=== PATIENT | female | born 1955 | race Caucasian/White ===

== ENCOUNTER 2019-01-01 09:22 | Day surgery (SDC) | payer OTHER ==
[~2019-01-01] VITALS: Ht 165.1 cm; Wt 78.2 kg
[2019-01-01] VITALS (9 sets, daily range): BP systolic 104–131; BP diastolic 52–74
[~2019-01-01 09:22] MED LIST: normal saline 1000ml 1,000 ML IV SCH
[2019-01-01] MEDS ORDERED: INSU100V12 SQ (09:24)
[2019-01-01] MEDS ORDERED: METO1TAB40 PO (09:25)
[2019-01-01] MEDS ORDERED: MULT-85 PO (09:25)
[2019-01-01] MEDS ORDERED: ATOR20TA66 PO (09:25)
[2019-01-01] MEDS ORDERED: GLIM4TAB4 PO (09:25)
[2019-01-01] MEDS ORDERED: LOSA100T57 PO (09:25)
[2019-01-01] MEDS ORDERED: METF-950 PO (09:25)
[2019-01-01] MEDS ORDERED: UBID50TA3 PO (09:25)
[2019-01-01] MEDS ORDERED: CHOL200077 PO (09:25)
[2019-01-01] MEDS ORDERED: EMPA10TA PO (09:25)
[2019-01-01] MEDS ORDERED: TETR15DR26 OP (09:25)
[2019-01-01 10:10] LABS: BASOPHILS # (AUTO) 0.1 X10'3 (0-0.2); BASOPHILS % (AUTO) 0.8 % (0-1); EOSINOPHILS # (AUTO) 0.1 X10'3 (0-0.9); EOSINOPHILS % (AUTO) 1.9 % (0-6); HEMATOCRIT 45.8 % (35.0-45.0); HEMOGLOBIN 15.1 g/dl (12.0-16.0); LYMPHOCYTES # (AUTO) 1.4 X10'3 (1.1-4.8); MEAN CORPUSCULAR HEMOGLOBIN 28.5 PG (27.0-31.0); MEAN CORPUSCULAR VOLUME 86.3 FL (78-98); MEAN PLATELET VOLUME 8.8 FL (7.4-10.4); MONOCYTES # (AUTO) 0.6 X10'3 (0-0.9); MONOCYTES % (AUTO) 7.8 % (2-12); NEUTROPHILS # (AUTO) 5.3 X10'3 (1.8-7.7); NEUTROPHILS % (AUTO) 70.5 % (42-75); PLATELET COUNT 167 X10'3 (140-440); RED CELL DISTRIBUTION WIDTH 17.9 % (11.5-14.5); WHITE BLOOD COUNT 7.5 X10'3 (4.5-11.0)
[2019-01-01] MEDS ORDERED: ceFAZolin 1GM/D5W- ADD-VANTAGE 100 ML IV ONE (10:15)
[2019-01-01] MEDS ORDERED: vancomycin 1,000mg inj ONE (10:16)
[2019-01-01] MEDS ORDERED: midazolam 2 mg/2 ml injection ONE ×6 (10:16→15:18)
[2019-01-01] MEDS ORDERED: LIDOcaine 1% W/epiNEPHrine 1:100,000 20ml vial ONE (10:16)
[2019-01-01] MEDS ORDERED: fentaNYL/PF 50MCG/1 ML 2ML syringe ONE ×4 (10:17→13:30)
[2019-01-01 10:19] LABS: ALBUMIN 4.2 G/DL (3.4-5.0); ANION GAP 10 (8-16); BLOOD UREA NITROGEN 26 MG/DL (7-18); BUN/CREATININE RATIO 21.7 (6.6-38.0); CALCIUM 9.6 MG/DL (8.5-10.1); CHLORIDE 101 MMOL/L (99-107); GLUCOSE 206 MG/DL (70-104); POTASSIUM 4.2 MMOL/L (3.5-5.1); SODIUM 136 MMOL/L (135-145); TOTAL CARBON DIOXIDE 24.8 MMOL/L (24-32); eGFR 46 ML/MIN
[2019-01-01] MEDS ORDERED: iohexol 350 MG/ML 50ML vial IV ONE (12:28)
[2019-01-01] MEDS ORDERED: proCHLORperazine 10 MG/2 ml inj ONE (12:55)
[2019-01-01] MEDS ORDERED: LIDOcaine 2% 10ml TOPICAL JELLY (Urojet) ONE (13:04)
[2019-01-01] MEDS ORDERED: iohexol 350MG/ML 100ml bottle IV ONE ×2 (13:13→13:34)
[2019-01-01] MEDS ORDERED: diphenhydrAMINE 50 mg/ml inj ONE (13:30)
== END 2019-01-01 19:30 | disposition home or self-care (01) ==
LOC: SSTAY O 09:22
PROVIDERS: ATTEND Internal Medicine Cardiovascular Disease
DX: I44.2 Atrioventricular block, complete (principal); I42.8 Other cardiomyopathies; I11.0 Hypertensive heart disease with heart failure; I50.9 Heart failure, unspecified; E78.5 Hyperlipidemia, unspecified; E11.9 Type 2 diabetes mellitus without complications; I49.9 Cardiac arrhythmia, unspecified; Z95.0 Presence of cardiac pacemaker; Z79.899 Other long term (current) drug therapy; Z79.84 Long term (current) use of oral hypoglycemic drugs; Z88.8 Allergy status to other drugs, medicaments and biological substances
CPT/HCPCS: 33225; 33233; 33249; 36415; 71045; 80048; 83735; 85025; 85610; 93005; 99152; 99153; C1769; C1777; C1882; C1887; C1900; J0690; J0780; J1200; J2250; J3010; J3370; J7030; Q9967

== ENCOUNTER 2019-01-03 19:53 | Emergency (ER) | payer OTHER ==
[~2019-01-03] VITALS: Ht 162.6 cm; Wt 78.1 kg
[~2019-01-03 19:53] MED LIST changes: +ATOR20TA66 PO; +CHOL200077 PO; +EMPA10TA PO; +GLIM4TAB4 PO; +INSU100V12 SQ; +LOSA100T57 PO; +METF-950 PO; +METO1TAB40 PO; +MULT-85 PO; +TETR15DR26 OP; +UBID50TA3 PO; -normal saline 1000ml 1,000 ML IV SCH
[2019-01-03] MEDS ORDERED: normal saline 1000ML IV soln IVB ONE (20:20)
[2019-01-03 20:39] LABS: BASOPHILS % (AUTO) 0.6 % (0-1); EOSINOPHILS # (AUTO) 0.1 X10'3 (0-0.9); EOSINOPHILS % (AUTO) 2.1 % (0-6); HEMATOCRIT 45.2 % (35.0-45.0); HEMOGLOBIN 14.9 g/dl (12.0-16.0); LYMPHOCYTES # (AUTO) 1.4 X10'3 (1.1-4.8); LYMPHOCYTES % (AUTO) 19.7 % (21-51); MEAN CORPUSCULAR HEMOGLOBIN 28.6 PG (27.0-31.0); MEAN CORPUSCULAR HGB CONC 33.1 g/dL (33.0-36.5); MEAN CORPUSCULAR VOLUME 86.5 FL (78-98); MEAN PLATELET VOLUME 8.7 FL (7.4-10.4); MONOCYTES # (AUTO) 0.5 X10'3 (0-0.9); MONOCYTES % (AUTO) 7.2 % (2-12); NEUTROPHILS # (AUTO) 4.9 X10'3 (1.8-7.7); NEUTROPHILS % (AUTO) 70.4 % (42-75); PLATELET COUNT 149 X10'3 (140-440); RED BLOOD COUNT 5.22 X10'6 (4.20-5.60); RED CELL DISTRIBUTION WIDTH 17.4 % (11.5-14.5); WHITE BLOOD COUNT 6.9 X10'3 (4.5-11.0)
[2019-01-03 20:52] LABS: ALANINE AMINOTRANSFERASE 23 U/L (12-78); ALBUMIN 4.2 G/DL (3.4-5.0); ALBUMIN/GLOBULIN RATIO 1.2 (1.1-1.5); ALKALINE PHOSPHATASE 129 IU/L (46-116); ANION GAP 13 (8-16); ASPARTATE AMINO TRANSFERASE 21 U/L (10-37); BILIRUBIN,TOTAL 1.3 MG/DL (0.1-1.0); BLOOD UREA NITROGEN 17 MG/DL (7-18); BUN/CREATININE RATIO 12.7 (6.6-38.0); CALCIUM 9.8 MG/DL (8.5-10.1); CHLORIDE 97 MMOL/L (99-107); CREATININE 1.34 MG/DL (0.40-0.90); GLUCOSE 300 MG/DL (70-104); MAGNESIUM 1.9 MG/DL (1.5-2.4); POTASSIUM 3.7 MMOL/L (3.5-5.1); SODIUM 136 MMOL/L (135-145); TOTAL CARBON DIOXIDE 25.7 MMOL/L (24-32); TOTAL PROTEIN 7.8 G/DL (6.4-8.2); eGFR 40 ML/MIN
[2019-01-03] MEDS ORDERED: BETA1TAB20 PO (21:26)
--- NOTE | 2019-01-03 22:12 | NUR ---
Pacemaker interrogation completed and transmitted, awaiting report.
[2019-01-03 23:30] VITALS: BP 134/72
== END 2019-01-03 23:32 | disposition home or self-care (01) ==
LOC: ER 19:54
DX: S20.212A Contusion of left front wall of thorax, initial encounter (principal); R00.2 Palpitations; I25.10 Atherosclerotic heart disease of native coronary artery without angina pectoris; I10 Essential (primary) hypertension; E11.8 Type 2 diabetes mellitus with unspecified complications; Z95.0 Presence of cardiac pacemaker; Z88.1 Allergy status to other antibiotic agents; Z88.2 Allergy status to sulfonamides; Z79.4 Long term (current) use of insulin; Z79.899 Other long term (current) drug therapy; X58.XXXA Exposure to other specified factors, initial encounter; Y93.89 Activity, other specified; Y92.89 Other specified places as the place of occurrence of the external cause; Y99.8 Other external cause status
CPT/HCPCS: 36415; 71045; 80053; 83735; 85025; 93005; 99284; J7040